=== PATIENT | male | born 1985 | race Caucasian/White ===

== ENCOUNTER 2019-04-26 08:13 | Emergency (ER) | payer OTHER ==
[~2019-04-26] VITALS: Ht 182.9 cm; Wt 120.7 kg
[2019-04-26 08:21] VITALS: Ht 182.9 cm; Wt 120.7 kg
[2019-04-26 12:15] VITALS: BP 158/114
== END 2019-04-26 12:15 | disposition home or self-care (01) ==
LOC: ED 08:13
DX: S86.911A Strain of unspecified muscle(s) and tendon(s) at lower leg level, right leg, initial encounter (principal); X58.XXXA Exposure to other specified factors, initial encounter; Y93.89 Activity, other specified; Y92.89 Other specified places as the place of occurrence of the external cause; Y99.8 Other external cause status

== ENCOUNTER 2020-06-26 07:35 | Emergency (ER) | payer OTHER ==
[~2020-06-26] VITALS: Ht 182.9 cm; Wt 99.8 kg
[2020-06-26 07:35] VITALS: BP 124/19; Ht 182.9 cm; Wt 99.8 kg
== END 2020-06-26 10:45 | disposition expired ==
LOC: ED 07:35
DX: I46.9 Cardiac arrest, cause unspecified (principal)